=== PATIENT | male | born 1965 | race Caucasian/White ===

== ENCOUNTER 2020-05-03 02:14 | Emergency (ER) | payer OTHER ==
[~2020-05-03] VITALS: Ht 188 cm; Wt 88.5 kg
[2020-05-03] MEDS ORDERED: ONDANSETRON ODT4 MG SL (03:31)
[2020-05-03] MEDS ORDERED: FLOMAX0.4 MG PO (03:31)
[2020-05-03] MEDS ORDERED: NORCO 5-325 TA1 EACH PO (03:31)
== END 2020-05-03 03:45 | disposition home or self-care (01) ==
LOC: ED 02:14
DX: N13.2 Hydronephrosis with renal and ureteral calculous obstruction (principal)
CPT/HCPCS: 74176; 80053; 81001; 83690; 85025; 96361; 96374; 96375; 99284-25; J1885; J2405; J7030